=== PATIENT | male | born 1940 | race Caucasian/White ===

== ENCOUNTER 2018-12-29 18:40 | Observation (INO) | payer OTHER ==
[~2018-12-29] VITALS: Ht 193 cm; Wt 99.9 kg
[~2018-12-29 18:40] MED LIST: ALLO300 PO; ASPI81CH PO; ATEN25 PO; ATOR10; CENTRUM SILVER1 EAC4 PO; CHLO25B PO; CHOL10002 PO; CLOP75; COLCRYS0.6 MG PO; COQ1050 MG PO; FOLI1 PO; POTA10T PO; SILD50TA PO; VITAMIN B122500 MC1 PO
[2018-12-29] MEDS ORDERED: ALBU90OI61 INH (19:16)
[2018-12-29] MEDS ORDERED: TRIDERM28.4 GM TOP (19:20)
--- NOTE | 2018-12-29 22:54 | NUR ---
PT ADMITTED FROM ED FOR ACUTE MEGHANN. A&O X4. VS WNL. PAIN BEING MANAGED 1MG PER DILAUDID. TRANSFERED TO BED INDEPENDENTLY. PT NPO AT MIDNIGHT FOR PLANNED SURGERY IN THE MORNING. ORIENTED TO ROOM AND EDUCATED FOREIGN CORRESPONDENT LIGHT. WILL CTM.
[2018-12-30 04:30] LABS: BASOPHILS ABSOLUTE AUTO 0.02 K/mm3 (0.00-0.23); BASOPHILS PERCENT AUTO 0 % (0-2); EOSINOPHILS ABSOLUTE AUTO 0.01 K/mm3 (0.00-0.68); EOSINOPHILS PERCENT AUTO 0 % (0-6); Hematocrit 39.5 % (37.0-53.0); Hemoglobin 13.1 g/dL (13.5-17.5); IMMATURE GRAN ABSOLUTE AUTO 0.06 K/mm3 (0.00-0.10); IMMATURE GRAN PERCENT AUTO 1 % (0-1); LYMPHOCYTES ABSOLUTE AUTO 1.02 K/mm3 (0.84-5.20); LYMPHOCYTES PERCENT AUTO 9 % (21-46); MONOCYTES ABSOLUTE AUTO 1.05 K/mm3 (0.16-1.47); MONOCYTES PERCENT AUTO 9 % (4-13); Mean Corpuscular HGB 30.9 pg (26.0-34.0); Mean Corpuscular HGB Conc 33.2 g/dL (31.5-36.5); Mean Corpuscular Volume 93 fL (80-100); NEUTROPHILS PERCENT AUTO 81 % (41-73); Platelet Count 98 K/mm3 (150-400); RDW Coefficient Variation 13.8 % (11.7-14.2); RDW Standard Deviation 47.1 fL (35.1-46.3); Red Blood Cell Count 4.24 M/mm3 (4.30-5.90); White Blood Cell Count 11.26 K/mm3 (4.00-11.30)
[2018-12-30 04:43] LABS: Alanine Aminotransfer (ALT/SGP 24 U/L (12-78); Albumin, Blood 2.7 g/dL (3.4-5.0); Albumin/Globulin Ratio 0.9 (0.8-1.8); Alk Phos 72 U/L (50-136); Anion Gap 4 mmol/L (6-16); Aspartate Aminotrans (AST/SGOT 21 U/L (12-37); Blood Urea Nitrogen 20 mg/dL (8-24); Bun/Creatinine Ratio 24.6 (12.0-20.0); CO2, Blood 32 mmol/L (21-32); Calcium, Blood 7.9 mg/dL (8.5-10.1); Chloride, Blood 104 mmol/L (98-108); Creatinine, Blood 0.81 mg/dL (0.60-1.20); Globulin, Blood 2.9 g/dL (2.2-4.0); Glomerular Filtration Rate >60 (60-); Glucose, Blood 105 mg/dL (70-99); Potassium, Blood 3.4 mmol/L (3.5-5.5); Sodium, Blood 140 mmol/L (136-145); Total Protein, Blood 5.6 g/dL (6.4-8.2)
--- NOTE | 2018-12-30 07:10 | NUR ---
recvd report from previous RN Zahida, pt sleeping in bed, call light within reach, bed rails up x 2, bed in lowest position
--- NOTE | 2018-12-30 10:10 | NUR ---
pt transferred to daysurgery by Hamida RODRÍGUEZ
--- NOTE | 2018-12-30 10:20 | NUR ---
INTO SDS VIA GURNEY. PT NUIQSUT, BUT A&OX3. REPORTS 5/10 ABDOMINAL PAIN. HISTORY AND ALLERGIES REVIEWED. NPO STATUS CONFIRMED. LUNGS TIGHT THOUGH OUT AND PT NOTED TO BE AUDIBLY WZ AT TIMES. SATS>90% ON 3 LITERS NASAL CANULA. K-RIDER INFUSING. NEW #18 IV STARTED TO LEFT HAND.
--- NOTE | 2018-12-30 12:30 | NUR ---
pt transferred to room from pacu via stretcher, stood and transferred himself to his own bed, post op VS commenced and stable. pt a/0 x 4, pleasant/cooperative, denies pain, no n/v.
--- NOTE | 2018-12-30 16:50 | NUR ---
shift summary: post op vs stable and complete. pt drowsy, sleeping, tolerating jellow and saltine crackers. pt denies pain and nausea. has visited pt. pt with cpap at home, respiratory therapy to set up cpap for tonight
[2018-12-31 04:32] LABS: Hematocrit 38.8 % (37.0-53.0); Hemoglobin 12.8 g/dL (13.5-17.5); Mean Corpuscular HGB 30.3 pg (26.0-34.0); Mean Corpuscular Volume 92 fL (80-100); Mean Platelet Volume 12.2 fL (9.1-12.4); Platelet Count 101 K/mm3 (150-400); RDW Coefficient Variation 13.9 % (11.7-14.2); RDW Standard Deviation 46.8 fL (35.1-46.3); Red Blood Cell Count 4.22 M/mm3 (4.30-5.90); White Blood Cell Count 10.56 K/mm3 (4.00-11.30)
[2018-12-31 04:48] LABS: Anion Gap 4 mmol/L (6-16); Blood Urea Nitrogen 24 mg/dL (8-24); Bun/Creatinine Ratio 26.1 (12.0-20.0); CO2, Blood 30 mmol/L (21-32); Calcium, Blood 7.8 mg/dL (8.5-10.1); Chloride, Blood 104 mmol/L (98-108); Creatinine, Blood 0.92 mg/dL (0.60-1.20); Glomerular Filtration Rate >60 (60-); Glucose, Blood 105 mg/dL (70-99); Potassium, Blood 3.5 mmol/L (3.5-5.5); Sodium, Blood 138 mmol/L (136-145)
--- NOTE | 2018-12-31 04:56 | NUR ---
SHIFT SUMMARY: PT POD #1 FOR LAP MEGHANN. LAP SITES CDI. LORNA IN RLQ DRAINING SANGUINOUS FLUID. DRAIN SPONGE DRESSING CHANGED ONCE. USING 2 L O2 VIA NC THROUGHOUT NIGHT WHILE SLEEPING. PT GIVEN 10MG OXY ONCE. AMBULATING TO BATHROOM PRN WITH SBA. VOIDING DARK MARGUERITE URINE. FLUIDS INFUSING. PT ENC TO INCREASE FLUID INTAKE. MARTINA REG DIET. HYPOACTIVE BT. PT DENIES PASSING GAS. WILL ENCOURAGE PT TO INCREASE AMBULATION.
--- NOTE | 2018-12-31 11:30 | NUR ---
DR GAN IN TO SEE PT.
--- NOTE | 2018-12-31 11:58 | NUR ---
NOTIFIED DR CARMONA THAT DR GAN IS DC'ING DR CARMONA STATED MAY PROCEED W/DC.
[2018-12-31] MEDS ORDERED: OXYC5 PO (12:08)
--- NOTE | 2018-12-31 12:33 | NUR ---
discharged DC'D IVS, CATHETERS INTACT. LORNA DRAIN MANAGEMENT TAUGHT; PT AND SPOUSE VERBALIZED UNDERSTANDING. REVIEWED DC INSTRUCTIONS; PT AND SPOUSE VERBALIZED UNDERSTANDING. LEFT UNIT IN WC W/POSSESSIONS AND DC PAPERWORK IN HAND ACCOMPANIED BY SPOUSE.
== END 2018-12-31 12:34 | disposition home or self-care (01) ==
LOC: ER 18:40 → SURS 18:41 → ER 21:20 → SURS 22:42
PROVIDERS: Internal Medicine; Surgery; ADMIT Hospitalist
PROC: 0FT44ZZ Resection of Gallbladder, Percutaneous Endoscopic Approach (ICD-10-PCS; principal; 2018-12-30 11:00)
DX: K80.00 Calculus of gallbladder with acute cholecystitis without obstruction (principal); I10 Essential (primary) hypertension; J44.9 Chronic obstructive pulmonary disease, unspecified; K21.9 Gastro-esophageal reflux disease without esophagitis; G47.33 Obstructive sleep apnea (adult) (pediatric); Z99.81 Dependence on supplemental oxygen; Z87.891 Personal history of nicotine dependence
CPT/HCPCS: 36415; 76705; 80048; 80053; 85025; 85027; 87040; 88304; 93005; 93010; 94760; 96361; 96365; 96366; 96367; 96374; 96375; 99285-25; G0378; J0696; J1100; J1170; J2250; J2405; J2704; J2710; J3010; J3480; J7030; J7120

== ENCOUNTER 2023-11-20 08:13 | Observation (INO) | payer OTHER ==
[~2023-11-20] VITALS: Ht 193 cm; Wt 110.0 kg
[2023-11-20] VITALS (7 sets, daily range): BP systolic 110–145; BP diastolic 65–95
[~2023-11-20 08:13] MED LIST changes: +ALBU90OI61 INH; +EUCERIN ADVANCE85 GM TP; +LIDO5TO TOP; +OXYC5 PO; +TIOT18 INH; +TRIDERM28.4 GM TOP; +Triamcinolone A15 G3 TOP
[2023-11-20] MEDS ORDERED: ELIQUIS5 M2 PO (09:05)
[2023-11-20] MEDS ORDERED: Albuterol 2.5 MG/3 ML VIAL INH SCH ×3 (09:15→11:25)
[2023-11-20] MEDS ORDERED: dilTIAZem HCL 125 MG in Dextrose 5% 100 ML IV SCH (09:15)
[2023-11-20] MEDS ORDERED: Doxycycline Hyclate 100 MG TAB PO ONE (09:15)
[2023-11-20] MEDS ORDERED: Ipratropium/Albuterol SulF 2.5-0.5MG/3 ML Amp INH ONE (09:15)
[2023-11-20] MEDS ORDERED: PredniSONE 20 MG Tab PO ONE (09:15)
[2023-11-20] MEDS ORDERED: Diltiazem HCl 5 MG / ML 5ML Vial IV ONE (09:15)
[2023-11-20 09:26] LABS: BASOPHILS ABSOLUTE AUTO 0.08 K/mm3 (0.00-0.23); BASOPHILS PERCENT AUTO 1 % (0-2); EOSINOPHILS ABSOLUTE AUTO 0.25 K/mm3 (0.00-0.68); EOSINOPHILS PERCENT AUTO 4 % (0-6); Hematocrit 47.1 % (37.0-53.0); Hemoglobin 15.8 g/dL (13.5-17.5); IMMATURE GRAN ABSOLUTE AUTO 0.02 K/mm3 (0.00-0.10); IMMATURE GRAN PERCENT AUTO 0 % (0-1); LYMPHOCYTES ABSOLUTE AUTO 1.54 K/mm3 (0.84-5.20); LYMPHOCYTES PERCENT AUTO 25 % (21-46); MONOCYTES PERCENT AUTO 8 % (4-13); Mean Corpuscular HGB Conc 33.5 g/dL (31.5-36.5); Mean Corpuscular Volume 93 fL (80-100); Mean Platelet Volume 12.1 fL (9.1-12.4); NEUTROPHILS ABSOLUTE AUTO 3.78 K/mm3 (1.96-9.15); NEUTROPHILS PERCENT AUTO 61 % (41-73); Platelet Count 120 K/mm3 (150-400); RDW Coefficient Variation 14.1 % (11.7-14.2); RDW Standard Deviation 47.6 fL (35.1-46.3); Red Blood Cell Count 5.09 M/mm3 (4.30-5.90); White Blood Cell Count 6.17 K/mm3 (4.00-11.30)
[2023-11-20 09:52] LABS: Albumin, Blood 3.5 g/dL (3.4-5.0); Bun/Creatinine Ratio 17.9 (12.0-20.0); Calcium, Blood 9.3 mg/dL (8.5-10.1); Creatinine, Blood 0.9 mg/dL (0.60-1.20); Globulin, Blood 3.5 g/dL (2.2-4.0); Magnesium, Blood 1.8 mg/dL (1.6-2.4)
[2023-11-20] MEDS ORDERED: Ondansetron 4 MG TAB PO PRN (12:25)
[2023-11-20] MEDS ORDERED: Acetaminophen 325 MG TABLET PO PRN (12:25)
[2023-11-20] MEDS ORDERED: Ipratropium/Albuterol SulF 2.5-0.5MG/3 ML Amp INH SCH (12:30)
[2023-11-20] MEDS ORDERED: Albuterol 2.5 MG/3 ML VIAL INH PRN (12:35)
--- NOTE | 2023-11-20 14:22 | NUR ---
ARRIVAL NOTE: PT ARRIVES TO PCU AT APPROX 1355 FROM ER VIA GURNEY. PT TRANSFERED TO PCU BED BY VIA SBA. PT A/OX4 PLEASANT AND COOPERATIVE WITH CARE. HE IS ON TELE IN AFIB IN THE LOW 100S WITH FREQUENT PVCS. PT DENIES CHEST PAIN/PRESSURE/PALP. HE IS ON RA WITH SPO2>90%, DENIES SOB. RESPIRATIONS EVEN AND UNLABORED. HE IS CONT AND IND. URINAL GIVEN AND PT EDUCATED ON NEED TO MONITOR I&OS. MUSCLE STRENGTH EQUAL BILATERALLY. RIGHT HAND IV PATENT WITH CARDIZEM RUNNING PER EMAR. PT DENIES PAIN. WILL CONTINUE TO MONITOR AND PROVIDE CARE.
[2023-11-20] MEDS ORDERED: Magnesium Sulf 2 GM/Water 50ML 50 ML IV SCH (14:30)
--- NOTE | 2023-11-20 14:42 | NUR ---
CARBURIZING FURNACE OPERATOR CALLED REPORTING FREQUENT PVCS. NOTIFIED, NO NEW ORDERS AT THIS TIME.
--- NOTE | 2023-11-20 16:25 | NUR ---
ASSUMED CARE OF PT WHILE PRIMARY RN TO BREAK. PT GETTING FITTED FOR CPAP BY RT AT THIS TIME. VSS, MULTIPLE PVCS BUT ASYMPTOMATIC, CALL LIGHT IN REACH. DENIES NEEDS.
[2023-11-20] MEDS ORDERED: Apixaban 5 MG Tab PO SCH (18:00)
--- NOTE | 2023-11-20 18:25 | NUR ---
PHYSICIAN CONTACT: TELE CALLS TO REPORT 10BEAT RUN OF POLYMORPHIC VTACH. NOTIFIED. NO NEW ORDERS AT THIS TIME. WILL CONTINUE TO MONITOR AND REPORT TO ONCOMING RN
[2023-11-20] MEDS ORDERED: Sennosides 8.6 MG Tab PO SCH (21:00)
[2023-11-20] MEDS ORDERED: Docusate Sodium 100 MG Cap PO SCH (21:00)
[2023-11-20] MEDS ORDERED: Lactobacil 2-S.Thermo-Bifido 1 1 Cap PO SCH (21:00)
[2023-11-20] MEDS ORDERED: Doxycycline Hyclate 100 MG TAB PO SCH (21:30)
[2023-11-21] VITALS (7 sets, daily range): BP systolic 122–147; BP diastolic 75–106
[2023-11-21 04:10] LABS: BASOPHILS ABSOLUTE AUTO 0.01 K/mm3 (0.00-0.23); BASOPHILS PERCENT AUTO 0 % (0-2); EOSINOPHILS ABSOLUTE AUTO 0.01 K/mm3 (0.00-0.68); EOSINOPHILS PERCENT AUTO 0 % (0-6); Hematocrit 44.2 % (37.0-53.0); Hemoglobin 15.1 g/dL (13.5-17.5); IMMATURE GRAN ABSOLUTE AUTO 0.02 K/mm3 (0.00-0.10); IMMATURE GRAN PERCENT AUTO 0 % (0-1); LYMPHOCYTES ABSOLUTE AUTO 1.34 K/mm3 (0.84-5.20); LYMPHOCYTES PERCENT AUTO 16 % (21-46); MONOCYTES ABSOLUTE AUTO 0.65 K/mm3 (0.16-1.47); MONOCYTES PERCENT AUTO 8 % (4-13); Mean Corpuscular HGB 31.6 pg (26.0-34.0); Mean Corpuscular HGB Conc 34.2 g/dL (31.5-36.5); Mean Corpuscular Volume 93 fL (80-100); Mean Platelet Volume 12.6 fL (9.1-12.4); NEUTROPHILS ABSOLUTE AUTO 6.29 K/mm3 (1.96-9.15); NEUTROPHILS PERCENT AUTO 76 % (41-73); Platelet Count 111 K/mm3 (150-400); RDW Coefficient Variation 14.2 % (11.7-14.2); RDW Standard Deviation 48.1 fL (35.1-46.3); Red Blood Cell Count 4.78 M/mm3 (4.30-5.90); White Blood Cell Count 8.32 K/mm3 (4.00-11.30)
[2023-11-21 04:29] LABS: Albumin, Blood 3.2 g/dL (3.4-5.0); Bilirubin, Total 1.4 mg/dL (0.1-1.0); Bun/Creatinine Ratio 22.8 (12.0-20.0); Calcium, Blood 9.1 mg/dL (8.5-10.1); Creatinine, Blood 0.79 mg/dL (0.60-1.20); Globulin, Blood 3.2 g/dL (2.2-4.0); Total Protein, Blood 6.4 g/dL (6.4-8.2)
--- NOTE | 2023-11-21 06:32 | NUR ---
1915 ASSUMED CARE OF PT, ALAYNA REPORT COMPLETED. SHIFTPLAN OF CARE REVIEWED WITH PT AND ALL QUESTIONS ANSWERED. PT WITH UNEVENTFUL SHIFT, APPEARS TO HAVE SLEPT WELL WITH HOSPITAL CPAP AT HOME SETTINGS. DILT GTT TITRATED OFF AT 2230 HR STABLE BETWEEN 70-90S. PT DENIES PAIN/SIGNIFICANT CONCERNS THIS SHIFT. PLEASE SEE FULL ASSESSMENT FOR ADDITIONAL DETAILS. NO FURTHER CONCERNS AT THIS TIME, WILL CONTINUE TO MONITOR.
[2023-11-21] MEDS ORDERED: Allopurinol 300 MG Tab PO SCH (09:00)
[2023-11-21] MEDS ORDERED: PredniSONE 20 MG Tab PO SCH (09:00)
[2023-11-21] MEDS ORDERED: Diltiazem HCl 180 MG Cap.CD PO SCH (09:00)
[2023-11-21] MEDS ORDERED: Metoprolol Succinate 50 MG TABCR PO SCH (10:00)
[2023-11-21] MEDS ORDERED: dilTIAZem HCL 30 MG TAB PO SCH ×2 (11:30)
--- NOTE | 2023-11-21 17:16 | NUR ---
END OF SHIFT SUMMARY ASSUMED CARE AT 0700. PT ALERT AND ORIENTED X 4, PLEASANT AND COOPERATIVE WITH CARE. USES CALL LIGHT APPROPRIATELY AND MAKES NEEDS KNOWN. RHYTHM IS AFIB WITH RVR. HR 100-160'S, MEDICATION ADJUSTED TODAY BY CABINET ASSEMBLER. SEE CARDIOLOGY NOTE. AT BEDSIDE MOST OF THE DAY. PT ABLE TO AMBULATE IN THE ROOM INDEPENDENTLY. DIM LUNG SOUNDS NOTED IN BASES. SLIGHT EDEMA IN BLLE. WILL CONTINUE TO MONITOR AND GIVE REPORT TO ONCOMING RN.
[2023-11-21] MEDS ORDERED: AmLODIPine Besylate 5 MG Tab PO SCH (21:00)
--- NOTE | 2023-11-22 02:39 | NUR ---
ASSUMED CARE OF PT WHILE PRIMARY NURSE ON BREAK. PT DENIES NEEDS AND RESTING COMFORTABLY. CALL LIGHT WITHIN REACH.
[2023-11-22 03:24] VITALS: BP 133/88
--- NOTE | 2023-11-22 05:21 | NUR ---
SHIFT SUMMARY: PT A/Ox4 AND PLEASANT W/CARE, PT SLEPT T/O THE NIGHT. TELE: AFIB 70s-100s, BP STABLE, SBP 130s, DENIES CP OR PRESSURE. PT WORE CPAP T/O THE NIGHT, SPO2>93%, NO COMPLAINTS OF SOB. PT IND W/ URINAL AT BEDSIDE, YELLOW URINE W/ GOOD OUTPUT. CALL LIGHT IN REACH AND BED IN LOWEST POSITION, WILL REPORT TO ONCOMING RN.
[2023-11-22 07:35] VITALS: BP 136/94
[2023-11-22] MEDS ORDERED: Amlodipine Bes2.5 MG PO (11:26)
[2023-11-22] MEDS ORDERED: IPRAT-ALBUT 0.5-3 ML INH (11:28)
[2023-11-22] MEDS ORDERED: METO50ER PO (11:28)
[2023-11-22] MEDS ORDERED: PRED20 PO (11:33)
[2023-11-22 12:00] VITALS: BP 144/98
--- NOTE | 2023-11-22 12:13 | NUR ---
Assumed care of patient from primary RN for lunch break.
--- NOTE | 2023-11-22 14:18 | NUR ---
SHIFT SUMMARY PT ALERT AND ORIENTED X4. NO ACUTE EVENTS DURING THIS SHIFT. HR 80-110'S. SBP 130'S. PT DISCHARGED HOME. TRANSPORTED OUT OF HOSPITAL IN A WHEELCHAIR AND TRANSPORTED HOME BY . DISCHARGE INSTRUCTIONS GIVEN VERBALLY AND WRITTEN. PRESCRIPTIONS FAXED TO [facility]. IVS REMOVED AND DRESSED WITH GAUZE AND COBAN.
== END 2023-11-22 13:43 | disposition home or self-care (01) ==
LOC: ER 08:13 → PCU 08:14
PROVIDERS: Student in an Organized Health Care Education/Training Program; ADMIT Internal Medicine
DX: I48.19 Other persistent atrial fibrillation (principal); J44.1 Chronic obstructive pulmonary disease with (acute) exacerbation; E80.6 Other disorders of bilirubin metabolism; I10 Essential (primary) hypertension; I45.81 Long QT syndrome; K21.9 Gastro-esophageal reflux disease without esophagitis; E78.5 Hyperlipidemia, unspecified; G47.33 Obstructive sleep apnea (adult) (pediatric); Z79.01 Long term (current) use of anticoagulants; Z87.891 Personal history of nicotine dependence; Z99.89 Dependence on other enabling machines and devices
CPT/HCPCS: 36415; 71045; 80053; 83735; 83880; 84145; 84443; 84484; 85025; 93005; 93010; 94640; 94644; 94660; 94664; 94762; 96365; 96366; 96367; 96375; 96376; 97162; 97530; 99285-25; A9270; G0378; J3475; J7512